=== PATIENT | female | born 1970 | race Caucasian/White ===

== ENCOUNTER 2020-11-08 09:06 | Outpatient (REF) | payer MEDICAID, SELFPAY ==
[2020-11-08 09:36] LABS: MANUAL DIFF FLAG NO
[2020-11-08 09:42] LABS: Basophils Percent Auto 0.5 % (0-2); Eosinophils Absolute Auto 0.4 X10*3/uL (0.0-0.4); Eosinophils Percent Auto 4.9 % (0-4); Hematocrit 40.3 % (37-47); Hemoglobin 12.7 g/dl (12.0-16.0); Imm Gran Abs Auto 0.03 X10*3/uL (0.00-0.03); Imm Gran Pct Auto 0.4 % (0.0-0.4); Lymphocytes Absolute Auto 2.7 X10*3/uL (1.2-4.9); Lymphocytes Percent Auto 35.6 % (20-40); Mean Corpuscular HGB Conc 31.5 g/dl (31.0-35.0); Mean Corpuscular Hemoglobin 28.3 pg (27.0-33.0); Mean Corpuscular Volume 89.8 fL (80-98); Mean Platelet Volume 10.1 fL (9.4-12.3); Monocytes Absolute Auto 0.5 X10*3/uL (0.1-1.2); Neutrophils Absolute Auto 3.9 X10*3/uL (2.0-8.3); Neutrophils Percent Auto 51.6 % (45-73); Platelet Count 319 X10*3/uL (160-400); Red Blood Count 4.49 X10*6/uL (4.20-5.50); Red Cell Distribution Width 13.7 % (11.0-16.0); White Blood Count 7.5 X10*3/uL (4.8-10.8)
[2020-11-08 10:05] LABS: Alanine Aminotransferase 23 U/L (0-31); Albumin Level 4.1 g/dL (3.5-5.0); Alkaline Phosphatase 106 U/L (39-117); Anion Gap 11 (12-20); Aspartate Amino Transferase 18 U/L (5-31); Bilirubin Total 0.6 mg/dL (0.0-1.0); Blood Urea Nitrogen 14 mg/dL (9-16); Calcium 9.1 mg/dL (8.4-10.2); Carbon Dioxide 29 mmol/L (22-29); Chloride 105 mmol/L (96-108); Cholesterol 173 mg/dL; Estimated Glomerular Filt Rate > 60; Glucose Fasting 90 mg/dL (60-99); HDL Cholesterol 43 mg/dL; LDL Cholesterol Calculated 113 mg/dl; Potassium 4.7 mmol/L (3.3-5.1); Sodium 140 mmol/L (135-145); Total Protein 7.6 g/dL (6.5-8.0); Triglycerides 86 mg/dL
[2020-11-08 10:21] LABS: HIV AB/AG Nonreactive (Nonreactive); HIV Num 1 0.07 S/CO (0.00-0.99)
[2020-11-08 10:26] LABS: Vitamin D 25-OH Total 45.9 ng/mL (>30)
== END 2020-11-08 09:07 | disposition home or self-care (01) ==
LOC: HO.LAB 09:06
PROVIDERS: PCP Nurse Practitioner Family; Visit Provider Nurse Practitioner Family
DX: E55.9 Vitamin D deficiency, unspecified (principal); G44.219 Episodic tension-type headache, not intractable; Z71.89 Other specified counseling
CPT/HCPCS: 36415; 80053; 80061; 82306; 85025; 87389

== ENCOUNTER 2020-11-29 12:21 | Outpatient (REF) | payer MEDICAID, SELFPAY ==
--- NOTE | ~2020-11-29 | MM_ITS ---
EXAMINATION: MM SCREENING DIGITAL BREAST TOMOSYNTHESIS, BILATERAL CLINICAL INFORMATION: Screening. Asymptomatic. The lifetime risk of breast cancer based on the Tyrer-Cuzick Model is 8%. COMPARISON: Mammography: 12/02/2018, 03/16/2017 TECHNIQUE: Digital breast tomosynthesis is performed in both the craniocaudal and mediolateral oblique views along with computer-aided detection (CAD). Synthesized 2D images are generated from the tomosynthesis. FINDINGS: There are scattered areas of fibroglandular density (ACR BI-RADS breast composition Category b). There are no significant masses, abnormal calcifications, or other abnormalities. Parenchymal pattern is similar to prior exams. The axilla and skin contours are unremarkable. MM/MM tomosynthesis screening BI IMPRESSION: No mammographic evidence of malignancy. ASSESSMENT: BI-RADS 1: Negative RECOMMENDATION: Routine annual mammography screening. This patient's information was entered into a reminder system with a target due date for their next mammogram.
== END 2020-11-29 12:22 | disposition home or self-care (01) ==
LOC: HO.MAMMO 12:21
PROVIDERS: PCP Nurse Practitioner Family; Visit Provider Nurse Practitioner Family
DX: Z12.31 Encounter for screening mammogram for malignant neoplasm of breast (principal)
CPT/HCPCS: 77063; 77067

== ENCOUNTER 2021-09-12 12:26 | Outpatient (REF) | payer MEDICAID, SELFPAY ==
--- NOTE | ~2021-09-12 | XR_ITS ---
EXAMINATION: XR CHEST CLINICAL INFORMATION: Cough COMPARISON: None TECHNIQUE: 2 views of the chest were obtained. FINDINGS: The lungs are well expanded. There is no focal consolidation, edema, or effusion. Mild bronchial wall thickening noted. No pneumothorax. The cardiomediastinal silhouette is within normal limits. No acute osseous abnormality. XR/XR chest 2V IMPRESSION: No dense consolidation. Bronchial wall thickening can be seen with a small airways process such as asthma or atypical/viral infection.
== END 2021-09-12 12:27 | disposition home or self-care (01) ==
LOC: HO.XRAY 12:26
PROVIDERS: PCP Nurse Practitioner Family; Visit Provider Nurse Practitioner Family
DX: R05.9 Cough, unspecified (principal)
CPT/HCPCS: 71046

== ENCOUNTER 2022-01-02 08:19 | Outpatient (REF) | payer MEDICAID, SELFPAY ==
--- NOTE | ~2022-01-02 | MM_ITS ---
EXAMINATION: MM SCREENING DIGITAL BREAST TOMOSYNTHESIS, BILATERAL CLINICAL INFORMATION: Screening. Asymptomatic. The lifetime risk of breast cancer based on the Tyrer-Cuzick Model is 8%. COMPARISON: Mammography: 11/29/2020, 12/02/2018, 03/16/2017 TECHNIQUE: Digital breast tomosynthesis is performed in both the craniocaudal and mediolateral oblique views along with computer-aided detection (CAD). Synthesized 2D images are generated from the tomosynthesis. FINDINGS: There are scattered areas of fibroglandular density (ACR BI-RADS breast composition Category b). There are no significant masses, abnormal calcifications, or other abnormalities. Parenchymal pattern is similar to prior studies. There is no developing density or architectural abnormality. The axilla and skin contours are unremarkable. No significant changes. MM/MM tomosynthesis screening BI IMPRESSION: No mammographic evidence of malignancy. ASSESSMENT: BI-RADS 1: Negative RECOMMENDATION: Routine annual mammography screening. This patient's information was entered into a reminder system with a target due date for their next mammogram.
== END 2022-01-02 08:20 | disposition home or self-care (01) ==
LOC: HO.MAMMO 08:19
PROVIDERS: PCP Nurse Practitioner Family; Visit Provider Nurse Practitioner Family
DX: Z12.31 Encounter for screening mammogram for malignant neoplasm of breast (principal)
CPT/HCPCS: 77063; 77067

== ENCOUNTER 2022-02-08 11:20 | Outpatient (REF) | payer MEDICAID, SELFPAY ==
--- NOTE | ~2022-02-08 | XR_ITS ---
EXAMINATION: XR HAND, LEFT CLINICAL INFORMATION: Pain COMPARISON: None TECHNIQUE: PA, lateral, and oblique views of the left hand. FINDINGS: No acute fracture or dislocation. Small marginal osteophytes of the first metacarpophalangeal joint, with tiny well-corticated ossific density along the ulnar aspect of the first proximal phalangeal base, likely chronic and degenerative in nature. No erosive changes. Soft tissues otherwise unremarkable. XR/XR hand LT min 3V IMPRESSION: No acute findings
== END 2022-02-08 11:21 | disposition home or self-care (01) ==
LOC: HO.HOSX 11:20
PROVIDERS: PCP Nurse Practitioner Family; Visit Provider Physician Assistant
DX: M79.642 Pain in left hand (principal); G56.02 Carpal tunnel syndrome, left upper limb; R20.0 Anesthesia of skin; R20.2 Paresthesia of skin
CPT/HCPCS: 73130; 99202

== ENCOUNTER 2022-03-03 12:00 | Outpatient (RCR) | payer MEDICAID, SELFPAY | END 2022-05-11 09:51 | disposition home or self-care (01) | LOC: HO.PT 12:00 | PROVIDERS: PCP Nurse Practitioner Family; Visit Provider Nurse Practitioner Family | DX: M25.572 Pain in left ankle and joints of left foot (principal) | CPT/HCPCS: 97110; 97161; 97530 ==

== ENCOUNTER 2022-07-27 | Outpatient (REF) | payer MEDICAID, SELFPAY ==
--- NOTE | 2022-07-27 10:00 | EMG_ITS ---
Bilateral median and ulnar motor and sensory studies were performed. Bilateral radial sensory studies were performed and paraspinal muscles were tested with a needle. IMPRESSION: Moderate to severe bilateral median neuropathy across carpal tunnel. MD JENNY Dumont/VAISHALI / [id number]
== END 2022-07-27 00:01 | disposition home or self-care (01) ==
LOC: HO.NEURO
PROVIDERS: Visit Provider Physician Assistant
DX: R20.0 Anesthesia of skin (principal); R20.2 Paresthesia of skin
CPT/HCPCS: 95886; 95911

== ENCOUNTER → 2022-09-12 12:34 | Outpatient (BNVA) | payer MEDICAID, SELFPAY | PROVIDERS: PCP Nurse Practitioner Family; Visit Provider Orthopaedic Surgery | DX: Z01.818 Encounter for other preprocedural examination (principal); G56.03 Carpal tunnel syndrome, bilateral upper limbs | CPT/HCPCS: 99212 ==

== ENCOUNTER 2022-09-21 09:41 | Day surgery (SDC) | payer MEDICAID, SELFPAY ==
[2022-09-21 09:55] VITALS: BMI 40.6
--- NOTE | 2022-09-21 09:58 | MHC.SHP ---
Pre-Procedural Eval Section A Date of Service: 09/21/22 The patient is an INPATIENT: No Changes since office visit: No Cold of Flu in the past 2 weeks, No New Medical Problems, No Changes in Medication and No Patient answered all questions The History & Physical has been completed within 30 days and I have reviewed it.: Yes Section B Chief Complaint: Carpal tunnel syndrome, left upper limb Allergies: Allergies Allergy/AdvReac Type Severity Reaction Status Date / Time No Known Allergies Allergy Verified 09/12/22 12:41 [No Known Allergies*] Plan I have reviewed the history and physical and performed a pertinent physical examination on my patient. No changes have occurred unless specified. Time Spent With Patient Time: Total time managing care of this patient today ____ minutes.
--- NOTE | 2022-09-21 09:58 | W.PM.OPN ---
Operative Note Operative Note Date of Service: 09/21/22 Narrative: Preop diagnosis: 1. left Carpal tunnel syndrome Postop diagnosis: same Procedure: 1. left Carpal tunnel release Surgeon: Penny Santana MD Anesthesia: local block using 1% lidocaine with epinephrine Findings: Thickened transverse carpal ligament. EBL: Less than 5 mL Specimens: None Complications: None Disposition: Brought to recovery room in stable condition Plan: Follow-up for 10-14 days for wound check and suture removal Indications: The patient is 52 years old, with left carpal tunnel syndrome that has been unresponsive to nonoperative management. The risks and benefits of operative treatment including but not limited to risk of damage to blood vessels, nerves, tendons, infection, persistent pain, persistent symptoms, or possible need for additional surgery were discussed with the patient and the patient wishes to proceed with surgery. Procedure: Once consent was obtained a local block was performed using a combination of 1% lidocaine with epinephrine. The patient was then brought back to the operating suite and placed on the operative table in supine position. A tourniquet was applied to the proximal aspect of the left upper extremity and the limb was prepped and draped in a standard surgical fashion. Once assured that we had a good block, a 2.0 cm longitudinal incision was made centered over the carpal tunnel. The incision was made through the skin to the subcutaneous tissues using a #15 blade. Dissection was made down to the level of the transverse carpal ligament with care being taken to protect the palmar cutaneous nerve. Once the transverse carpal ligament was clearly visualized, a longitudinal incision was made in the transverse carpal ligament 1st using a #15 blade, then using tenotomy scissors under direct visualization. Care was taken to look for and protect the motor branch of the median nerve when seen in this area. Once satisfied with our carpal tunnel release the wound was copiously irrigated with normal saline and hemostasis was obtained with a brief period of local pressure. The skin edges were reapproximated with some 5.0 nylon suture material and a sterile dressing was applied. The patient appears to have tolerated the procedure well and with no complications. All digits were well vascularized at the conclusion of the case.
[2022-09-21 11:33] VITALS: BP 130/70; PULSE 92; RESP 16; TEMP 37; O2SAT 96
== END 2022-09-21 11:53 | disposition home or self-care (01) ==
PROVIDERS: Visit Provider Orthopaedic Surgery
PROC: (CPT 64721; principal; 2022-09-21 12:10)
DX: G56.02 Carpal tunnel syndrome, left upper limb (principal); R20.0 Anesthesia of skin; R20.2 Paresthesia of skin
CPT/HCPCS: 64721; J0171

== ENCOUNTER → 2022-10-04 12:10 | Outpatient (BNVA) | payer MEDICAID, SELFPAY | PROVIDERS: Visit Provider Orthopaedic Surgery | DX: Z13.89 Encounter for screening for other disorder (principal) ==

== ENCOUNTER 2022-11-08 10:09 | Outpatient (REF) | payer MEDICAID, SELFPAY ==
--- NOTE | 2022-11-09 08:09 | MHC.AU.MED ---
Medical Clearance for Hearing Instrumentation Date: 11/09/22 Patient Name: Susannah Manuel Date of : 1970 Referring Provider: Cristina Rios NP We have seen your patient on 11/08/22 and have determined that they are a candidate for amplification (See accompanying report). Specifically, they would benefit from: Hearing aid use in both ears There is a statute that addresses Medical Evaluation Requirements prior to fitting a patient with a hearing aid. According to [place] statute [facility] CMR:6.03(1), (a) General. Except as provided in 265 CMR 6.03(1)(b), a supervisor wool shearing shall not sell a hearing aid unless the prospective user has presented to the supervisor wool shearing a written statement signed by a licensed physician that states that the patient's hearing loss has been medically evaluated and the patient may be considered a candidate for a hearing aid. The medical evaluation must have taken place within the preceding six months. Please note: Due to the [place] Statute referenced above, we cannot accept a signature other than that of a licensed physician. IMPLEMENTATION SPECIALIST PAYROLL and PA signatures cannot be accepted. I am in agreement with the above recommendation. There is no medical contraindication for hearing instrumentation. Physician Signature Date Physician Name (Printed)
--- NOTE | 2022-11-09 08:09 | MHC.AU.HA1 ---
Hearing Aid Evaluation Date of Visit: 11/08/22 Bank Representative Used: Armenian- By Phone Historical Information: Description of Hearing: Mild sloping to moderately-severe sensorineural hearing loss bilaterally Summary: Patient was seen for audiological evaluation (see separate report for details). She is interested in hearing aids. Discussed options and styles. She would like to try an ITC style, as she feels it would be more comfortable than having something behind her ear. Hearing Aid Prescription: Based on the individual?s shared listening needs, communication environments, dexterity, desire for connectivity, and personal preferences, the following prescription for amplification has been made: Right ear: Make, Model, Color: Phonak Virto P70-312 Battery Size: 312 Left ear: Make, Model, Color: Phonak Virto P70-312 Battery Size: 312 Action Taken/Action Needed: Earmold Impressions Taken Medical Clearance to be requested from PCP/ENT Hearing Instrument Fitting to be scheduled when materials arrive Primary Diagnosis: H90.3 Bilateral Sensorineural Hearing Loss Signature: Provider: Amauri Cristobal, MARIELLA-A
== END 2022-11-08 10:10 | disposition home or self-care (01) ==
LOC: HO.SH 10:09
PROVIDERS: Visit Provider Registered Nurse Community Health
DX: Z01.118 Encounter for examination of ears and hearing with other abnormal findings (principal); Z46.1 Encounter for fitting and adjustment of hearing aid; H90.3 Sensorineural hearing loss, bilateral
CPT/HCPCS: 92557; 92567; 92591; V5275

== ENCOUNTER 2022-12-14 13:39 | Outpatient (REF) | payer MEDICAID, SELFPAY | END 2022-12-14 13:40 | disposition home or self-care (01) | LOC: HO.HAP 13:39 | PROVIDERS: Visit Provider Registered Nurse Community Health | DX: Z46.1 Encounter for fitting and adjustment of hearing aid (principal); H90.3 Sensorineural hearing loss, bilateral | CPT/HCPCS: V5011; V5020; V5160; V5259; V5266 ==

== ENCOUNTER 2023-02-13 14:31 | Outpatient (REF) | payer MEDICAID, SELFPAY ==
--- NOTE | ~2023-02-13 | MM_ITS ---
EXAMINATION: MM SCREENING DIGITAL BREAST TOMOSYNTHESIS, BILATERAL CLINICAL INFORMATION: Screening. Asymptomatic. The lifetime risk of breast cancer based on the Tyrer-Cuzick Model is 8%. COMPARISON: Mammography: 01/02/2022, 11/29/2020, 12/02/2018 TECHNIQUE: Digital breast tomosynthesis is performed in both the craniocaudal and mediolateral oblique views along with computer-aided detection (CAD). Synthesized 2D images are generated from the tomosynthesis. Additional left MLO view is provided. FINDINGS: There are scattered areas of fibroglandular density (ACR BI-RADS breast composition Category b). There are no significant masses, abnormal calcifications, or other abnormalities. No architectural abnormality or developing density or significant change from prior studies. The axilla are unremarkable. Skin contours are smooth. MM/MM tomosynthesis screening BI IMPRESSION: No significant changes from prior exam. ASSESSMENT: BI-RADS 1: Negative RECOMMENDATION: Routine annual mammography screening. This patient's information was entered into a reminder system with a target due date for their next mammogram.
== END 2023-02-13 14:32 | disposition home or self-care (01) ==
LOC: HO.MAMMO 14:31
PROVIDERS: Visit Provider Nurse Practitioner Family
DX: Z12.31 Encounter for screening mammogram for malignant neoplasm of breast (principal)
CPT/HCPCS: 77063; 77067

== ENCOUNTER 2023-03-29 12:49 | Outpatient (REF) | payer MEDICAID, SELFPAY ==
--- NOTE | ~2023-03-29 | US_ITS ---
EXAMINATION: US PELVIS CLINICAL INFORMATION: Possible episode of postmenopausal bleeding. COMPARISON: None available. TECHNIQUE: Ultrasound of the pelvis is performed using both transabdominal and transvaginal transducers along with Doppler. Transvaginal imaging is performed due to inadequate visualization transabdominally. Imaging is limited by body habitus. FINDINGS: Uterus: The uterus is anteverted and measures 12.0 x 3.9 x 5.7 cm. The uterus is anteverted and retroflexed. Nabothian cysts are seen within the cervix. The double wall endometrial thickness is 0.6 mm. The uterus is smooth in contour and has normal myometrial echogenicity. No visible fibroid. Adnexa: Both ovaries are visualized. There is normal color flow to the adnexa. There is no ovarian torsion. There is no pelvic ascites or fluid collection. Right ovary measures 1.8 x 1.2 x 1.1 cm, volume 1.2 mL. Left ovary measures 3.1 x 1.7 x 2.1 cm, volume 6.0 mL. The left ovary contains a 2.2 x 1.4 x 1.7 cm dominant follicle. US/US pelvic and transvaginal IMPRESSION: 1. A 2.2 cm dominant left ovarian follicle is seen. 2. Nabothian cysts are seen within the cervix.
== END 2023-03-29 12:50 | disposition home or self-care (01) ==
LOC: HO.US 12:49
PROVIDERS: Visit Provider Registered Nurse
DX: N95.0 Postmenopausal bleeding (principal)
CPT/HCPCS: 76830; 76856

== ENCOUNTER 2023-06-07 13:49 | Outpatient (AMB) | payer MEDICAID, SELFPAY ==
--- NOTE | 2023-06-07 14:52 | A.OFFVIS_ITS ---
Intake Vital Signs 06/07/23 14:53 Height 5 ft Weight 215 lb BMI 42.0 BP 118/76 Intake Visit Reasons: PMB/PCP Referral Intake Note: The patient agreed to use of a front office medical assistant during this encounter. Scribed for SHIVA Crandall by Rhonda Khan front office medical assistant, on 06/07/2023 at 3:00 pm EST. Die Maker Apprentice Required: Yes Die Maker Apprentice Language: Elementary Assistant Teacher Name: Poly SALCIDO Information Interpreted: non-clinical & clinical Accompanied by: Self / Same As Patient Allergies No Known Allergies [No Known Allergies*] Allergy (Verified 06/07/23 14:53) Post menopausal: Yes HPI HPI Comments History of Present Illness Details She is here via PCP referral for: possible PMB. Reports regular menses lasting 5 days in the past last menses was in December and haven't had one since. Reported vaginal dryness with intimacy to PCP in the past and was prescribed Estrace a few years ago but does not use it. Denies hot flashes. [facility] Medical History (Updated 06/07/23 @ 15:20 by Rhonda Khan) Perimenopausal Social History (Reviewed 06/07/23 @ 14:54 by Poly Mckee [facility]) Patient Tobacco Use Status: Never used Tobacco Current occupational status: disabled Current occupation: rt hand Physical Exam Vital Signs: Last Vital Signs BP 118/76 06/07/23 14:53 BMI result Body Mass Index 42.0 Const General: cooperative, healthy appearing, comfortable, no acute distress, well developed, alert and awake Other: General: Yes bladder normal to palpation External Female Exam: normal external appearance and normal appearance of the urethra Speculum Exam - Vagina: normal appearance of the vagina, normal palpation and normal vaginal discharge Speculum Exam - Cervix: normal appearance of the cervix and normal palpation Bimanual exam- vagina & uterus: normal bimanual exam, normal palpation, bladder normal to palpation and normal palpation Bimanual Exam- Adnexa, other: normal adnexae and no masses Results Reviewed Results Reviewed: Ordering Physician: Betzy Barnes Date of Service: 03/29/23 Procedure(s): US pelvic and transvaginal Accession Number(s): [id number] cc: Betzy Barnes~ EXAMINATION:? US PELVIS CLINICAL INFORMATION:? Possible episode of postmenopausal bleeding. COMPARISON: None available. TECHNIQUE: Ultrasound of the pelvis is performed using both transabdominal and transvaginal transducers along with Doppler. Transvaginal imaging is performed due to inadequate visualization transabdominally. Imaging is limited by body habitus. FINDINGS: Uterus: The uterus is anteverted and measures 12.0 x 3.9 x 5.7 cm. The uterus is anteverted and retroflexed. Nabothian cysts are seen within the cervix. The double wall endometrial thickness is 0.6 mm.? The uterus is smooth in contour and has normal myometrial echogenicity. ? No visible fibroid. Adnexa: Both ovaries are visualized. There is normal color flow to the adnexa. There is no ovarian torsion.? There is no pelvic ascites or fluid collection. Right ovary measures 1.8 x 1.2 x 1.1 cm, volume 1.2 mL. Left ovary measures 3.1 x 1.7 x 2.1 cm, volume 6.0 mL. The left ovary contains a 2.2 x 1.4 x 1.7 cm dominant follicle. US/US pelvic and transvaginal IMPRESSION: ? 1. A 2.2 cm dominant left ovarian follicle is seen. ? 2. Nabothian cysts are seen within the cervix. Assessment & Plan Assessment & Plan (1) Perimenopausal: Code(s): N95.1 - Menopausal and female climacteric states Plan: Discussed: Reviewed US results via PCP. Counseled re: perimenopause vs menopause. Monitor periods, report any unscheduled bleeding, bleeding episodes less than 21 days apart or heavy prolonged menstrual bleeding. All of her questions and concerns were addressed to the best of my ability and shared decision making. She is agreeable to plan. (2) Vaginal dryness: Code(s): N89.8 - Other specified noninflammatory disorders of vagina Plan: Recommend Replens, [place] jelly, Astroglide or coconut oil for vaginal dryness. Orders: Orders Bacterial Vaginosis Panel Today N95.1 - Menopausal and female climacteric states CT NG by PCR Today N95.1 - Menopausal and female climacteric states Coding Level of Care Code New Pt Level 3 (36263) Diagnoses Perimenopausal N95.1 Vaginal dryness N89.8
[2023-06-07 14:53] VITALS: BP 118/76; BMI 42.0
== END 2023-06-07 15:25 | disposition home or self-care (01) ==
PROVIDERS: PCP Nurse Practitioner Family; Visit Provider Advanced Practice Midwife
DX: N95.1 Menopausal and female climacteric states (principal); N89.8 Other specified noninflammatory disorders of vagina
CPT/HCPCS: 99203

== ENCOUNTER 2023-06-07 13:49 | Outpatient (REF) | payer MEDICAID, SELFPAY ==
[2023-06-08 09:39] LABS: CT PCR NOT DETECTED (Not Detect.); NG PCR NOT DETECTED (Not Detect.)
[2023-06-08 12:08] LABS: BV Int Neg Control Negative (Negative)
[2023-06-08 12:09] LABS: BV Int Pos Control Positive (Positive)
== END 2023-06-07 13:50 | disposition home or self-care (01) ==
LOC: HO.LNP 13:49
PROVIDERS: PCP Nurse Practitioner Family; Visit Provider Advanced Practice Midwife
DX: N95.1 Menopausal and female climacteric states (principal); N89.8 Other specified noninflammatory disorders of vagina
CPT/HCPCS: 0353U; 87480; 87510; 87660; 99212

== ENCOUNTER → 2023-10-18 14:45 | Outpatient (REF) | payer MEDICAID, SELFPAY | LOC: HO.SL 14:45 | PROVIDERS: PCP Registered Nurse; Visit Provider Registered Nurse | DX: G47.33 Obstructive sleep apnea (adult) (pediatric) (principal); G47.19 Other hypersomnia; R06.83 Snoring | CPT/HCPCS: 95806 ==

== ENCOUNTER → 2023-10-18 19:00 | Outpatient (BNV) | payer MEDICAID, SELFPAY | PROVIDERS: PCP Registered Nurse; Visit Provider Internal Medicine | DX: G47.33 Obstructive sleep apnea (adult) (pediatric) (principal) | CPT/HCPCS: 95806 ==

== ENCOUNTER 2023-11-06 12:00 | Outpatient (REF) | payer MEDICAID, SELFPAY ==
[2023-11-06 13:51] LABS: Estimated Average Glucose 111 mg/dL; Hemoglobin A1c % 5.5 % (<6.0)
[2023-11-06 13:52] LABS: Alanine Aminotransferase 21 U/L (0-31); Albumin Level 4.1 g/dL (3.5-5.0); Alkaline Phosphatase 119 U/L (39-117); Anion Gap 12 (12-20); Aspartate Amino Transferase 20 U/L (5-31); Bilirubin Total 0.2 mg/dL (0.0-1.0); Blood Urea Nitrogen 12 mg/dL (9-16); Calcium 9.7 mg/dL (8.4-10.2); Carbon Dioxide 26 mmol/L (22-29); Chloride 105 mmol/L (96-108); Cholesterol 167 mg/dL (<200); Estimated Glomerular Filt Rate > 60; Glucose Random 89 mg/dL (60-115); HDL Cholesterol 44 mg/dL (>40); LDL Cholesterol Calculated 105 mg/dL (<100); Potassium 3.9 mmol/L (3.3-5.1); Sodium 139 mmol/L (135-145); Total Protein 8.5 g/dL (6.5-8.0); Triglycerides 94 mg/dL (<150)
[2023-11-06 14:29] LABS: Syphilis Screen Nonreactive (Nonreactive)
[2023-11-07 06:05] LABS: HBS Num1 0.33 mIU/mL (0-7.99); HBsAGNum1 0.35 S/CO (0.00-0.99); HIV AB/AG Nonreactive (Nonreactive); HIV Num 1 0.05 S/CO (0.00-0.99); Hepatitis A Antibody IgM 0.18 Index (0-0.79); Hepatitis B Core Antibody Nonreactive (Nonreactive); Hepatitis B Surface Antigen Negative (Negative); ~HepC Num1 0.17 S/CO (0.00-0.79); ~Hepatitis A Antibody IgM Nonreactive (Nonreactive); ~Hepatitis B Surface Antibody NONREACTIVE (Nonreactive); ~Hepatitis C Antibody Nonreactive (Nonreactive)
== END 2023-11-06 12:01 | disposition home or self-care (01) ==
LOC: HO.HHCL 12:00
PROVIDERS: Visit Provider Registered Nurse
DX: Z00.00 Encounter for general adult medical examination without abnormal findings (principal); E66.01 Morbid (severe) obesity due to excess calories; Z68.41 Body mass index [BMI] 40.0-44.9, adult
CPT/HCPCS: 36415; 80053; 80061; 83036; 86704; 86706; 86709; 86780; 86803; 87340; 87389

== ENCOUNTER 2024-02-06 11:02 | Outpatient (REF) | payer MEDICAID, SELFPAY ==
[2024-02-06 12:58] LABS: MANUAL DIFF FLAG NO
[2024-02-06 13:00] LABS: Basophils Absolute Auto 0.1 X10*3/uL (0.0-0.2); Basophils Percent Auto 0.6 % (0-2); Eosinophils Absolute Auto 0.4 X10*3/uL (0.0-0.4); Eosinophils Percent Auto 4.4 % (0-4); Hematocrit 40.3 % (37.0-47.0); Hemoglobin 12.7 g/dl (12.0-16.0); Imm Gran Abs Auto 0.03 X10*3/uL (0.00-0.03); Imm Gran Pct Auto 0.4 % (0.0-0.4); Immature Retic Fraction 11.4 % (3.0-15.9); Lymphocytes Absolute Auto 2.4 X10*3/uL (1.2-4.9); Lymphocytes Percent Auto 27.9 % (20-40); Mean Corpuscular HGB Conc 31.5 g/dl (31.0-35.0); Mean Corpuscular Hemoglobin 27.4 pg (27.0-33.0); Mean Corpuscular Volume 86.9 fL (80.0-98.0); Mean Platelet Volume 10.2 fL (9.4-12.3); Monocytes Absolute Auto 0.6 X10*3/uL (0.1-1.2); Monocytes Percent Auto 6.9 % (2-11); Neutrophils Percent Auto 59.8 % (45-73); Platelet Count 348 X10*3/uL (160-400); Red Blood Count 4.64 X10*6/uL (4.20-5.50); Retic HGB Equivalent 30.7 pg (30.0-35.0); Reticulocyte Percent 1.4 % (0.5-1.8); Reticulocytes Absolute 0.064 X10*6/uL (0.026-0.095); White Blood Count 8.4 X10*3/uL (4.8-10.8)
[2024-02-06 13:24] LABS: Alanine Aminotransferase 20 U/L (0-31); Alkaline Phosphatase 121 U/L (39-117); Anion Gap 13 (12-20); Aspartate Amino Transferase 17 U/L (5-31); Bilirubin Direct < 0.2 mg/dL (0.0-0.5); Bilirubin Total 0.2 mg/dL (0.0-1.0); Blood Urea Nitrogen 12 mg/dL (9-16); Calcium 9.5 mg/dL (8.4-10.2); Carbon Dioxide 26 mmol/L (22-29); Chloride 105 mmol/L (96-108); Estimated Glomerular Filt Rate > 60; Gamma Glutamyl Transpeptidase 34 U/L (7-33); Glucose Random 93 mg/dL (60-115); Potassium 4.2 mmol/L (3.3-5.1); Sodium 140 mmol/L (135-145); Total Protein 8.2 g/dL (6.5-8.0)
== END 2024-02-06 11:03 | disposition home or self-care (01) ==
LOC: HO.HHCL 11:02
PROVIDERS: Visit Provider Registered Nurse
DX: R74.8 Abnormal levels of other serum enzymes (principal); R77.9 Abnormality of plasma protein, unspecified
CPT/HCPCS: 36415; 80053; 82248; 82977; 85025; 85045

== ENCOUNTER 2024-02-21 16:12 | Outpatient (REF) | payer MEDICAID, SELFPAY | END 2024-02-21 16:13 | disposition home or self-care (01) | LOC: HO.MAMMO 16:12 | PROVIDERS: PCP Registered Nurse; Visit Provider Nurse Practitioner Family | DX: Z12.31 Encounter for screening mammogram for malignant neoplasm of breast (principal) | CPT/HCPCS: 77063; 77067 ==

== ENCOUNTER → 2024-02-21 16:30 | Outpatient (BNV) | payer MEDICAID, SELFPAY | PROVIDERS: PCP Registered Nurse; Visit Provider Radiology Diagnostic Radiology | DX: Z12.31 Encounter for screening mammogram for malignant neoplasm of breast (principal) | CPT/HCPCS: 77063; 77067 ==

== ENCOUNTER 2024-07-15 14:00 | Outpatient (RCR) | payer MEDICAID, SELFPAY ==
--- NOTE | 2024-06-18 14:09 | MHC.OT.EP ---
[address] [phone] Occupational Therapy Plan of Care Patient Name: Susannah Manuel Date of Evaluation: 06/18/24 Diagnosis: Chronic left elbow pain Pain Location: Left shoulder (acromion) and left medial elbow Low resting pain, increases w/ heavy work and more use Pain Score: 3 Pain Scale Used: Numeric (0 - 10) Aggravating Factors: Sleeping, heavy lifting Alleviating Factors: Tries to move arm throughout the day, Ibuprophen occasionally Assessment: 54 yo female presents with pain radiating from left shoulder to elbow, started a few months ago. She offers no specific cause of injury, but she sleeps on that side and believes that may have caused the problem originally. On assessment today, she has pain localized to left shoulder at acromion and tenderness and diffuse pain through left medial elbow. She has significant edema in left forearm compared to right w/ dense tissue palpable. She reports frequent activity in home w/ all home care for herself and three grown children and I believe this is a general overuse injury. She is receptive to education for activity modification and initiation of home exercise program to promote good circulation and movement of the upper body. I anticipate she will do well w/ course of OT. Frequency and Duration: The patient will be seen 2x/wk for 4 weeks Short Term Goals: Good follow through w/ joint protection and activity modification recommendations Ind w/ HEP Ind w/ nighttime sleep position recommendations Ind w/ heat modalities (heat pad, warm water, etc) Pt to incorporate daily walks for circulation Nursing Home Goals: Pt to report ease w/ moderate lifting/forceful tasks at home (laundry, mopping) Pt to report sleeping through night without waking w/ LUE pain Ind w/ progression of strengthening program w/ therabands Treatment Plan: Therapeutic Exercise Therapeutic Activity Home Exercise Program Patient Education Edema Control ADL Training Fluidotherapy MHP Soft Tissue Mobilization Kinesiotaping Electronically Signed By: MARGY Ward/Daphne CHT Please Sign and return to therapist. Thank you once again for your referral.
--- NOTE | 2024-07-30 11:40 | MHC.OT.DC ---
[address] [phone] F: [phone] Occupational Therapy Discharge Note Patient Name: Susannah Manuel Provider: Betzy Barnes NP Diagnosis: Chronic left elbow pain Date of Surgery: Date of Evaluation: 06/18/24 Date of Discharge: 07/30/24 Treatments to Date: 3 Cancellations to Date: 6 No Shows to Date: 2 Discharge Status: Discharge Summary: Susannah was seen initially for chronic left elbow pain. She was given HEP and missed several appointments due to Covid, but on return had reported good improvements in pain and movement. She was seen for a total of three OT session including initial eval, but has missed 8 appointments (inclduing 2 no shows) and we will be discharging therapy services at this time due to non-compliance policy. I anticipate she will continue to do well w/ home program. Electronically Signed By: Chichi Woodruff OTR/L Reviewed/agree with student documentation: Therapist: Please Sign and return to therapist, thank you for your referral.
== END 2024-07-30 11:41 | disposition home or self-care (01) ==
LOC: HO.OT 14:00
PROVIDERS: PCP Registered Nurse; Visit Provider Registered Nurse
DX: M25.522 Pain in left elbow (principal)
CPT/HCPCS: 97110; 97140; 97165

== ENCOUNTER 2024-10-30 09:59 | Outpatient (REF) | payer MEDICAID, SELFPAY ==
--- NOTE | ~2024-10-30 | US_ITS ---
EXAMINATION: US LOWER EXTREMITY VENOUS (REFLUX EXAM), BILATERAL CLINICAL INFORMATION: Venous insufficiency. COMPARISON: None. TECHNIQUE: Color flow triplex imaging and compression Doppler was performed to evaluate both the deep and the superficial systems bilaterally. To evaluate the superficial system, the examination was performed in the upright position. Color-flow Doppler ultrasound and compression ultrasound were utilized. In addition, maneuvers were utilized to demonstrate reflux. FINDINGS: 1. DEEP VENOUS ULTRASOUND OF THE RIGHT LOWER EXTREMITY: Common Femoral Vein: Compressible, normal respiratory variation and augmented flow. Femoral Vein: Compressible, normal color flow and augmentation. Popliteal Vein: Compressible, normal augmentation. Deep Reflux: There is no evidence of reflux in the deep system in either the common femoral vein, superficial femoral or the popliteal vein. There is no evidence of a Joshua's cyst. 2. SUPERFICIAL ULTRASOUND WITH DOPPLER OF RIGHT LOWER EXTREMITY: GREAT SAPHENOUS VEIN: Saphenofemoral Junction: 0.5 cm; Reflux: 0 ms Proximal Thigh: 0.6 cm; Reflux: 0 ms Mid Thigh: 0.5 cm; Reflux: 0 ms Distal Thigh: 0.5 cm; Reflux: 0 ms At Knee: 0.5 cm; Reflux: 0 ms Proximal Calf: 0.4 cm; Reflux: 0 ms Mid Calf: 0.2 cm; Reflux: 0 ms Distal Calf: 0.3 cm; Reflux: 0 ms DUPLICATED MEDIAL GREAT SAPHENOUS VEIN: Diameter: None imaged Reflux: NA DUPLICATED LATERAL GREAT SAPHENOUS VEIN: Diameter: 0.5 Reflux: NA SMALL SAPHENOUS VEIN: Saphenopopliteal Junction: 0.2 cm; Reflux: 0 ms Proximal: 0.2 cm; Reflux: 0 ms Distal: 0.1 cm; Reflux: 0 ms VEIN OF GIACOMINI: Size: NA Reflux: NA PERFORATORS: Location: None imaged Size: NA Reflux: NA VARICOSITIES: Location: None imaged. Size: NA Reflux: NA 3. DEEP VENOUS ULTRASOUND OF THE LEFT LOWER EXTREMITY: Common Femoral Vein: Compressible, normal respiratory variation and augmented flow. Femoral Vein: Compressible, normal color flow and augmentation. Popliteal Vein: Compressible, normal augmentation. Deep Reflux: There is no evidence of reflux in the deep system in either the common femoral vein, superficial femoral or the popliteal vein. There is no evidence of a Joshua's cyst. 4. SUPERFICIAL ULTRASOUND WITH DOPPLER OF LEFT LOWER EXTREMITY: GREAT SAPHENOUS VEIN: Saphenofemoral Junction: 0.4 cm; Reflux: 0 ms Proximal Thigh: 0.6 cm; Reflux: 0 ms Mid Thigh: 0.3 cm; Reflux: 0 ms Distal Thigh: Not seen. At Knee: Not seen. Proximal Calf: 0.3 cm; Reflux: More than 2936 ms Mid Calf: 0.2 cm; Reflux: 1976 ms Distal Calf: 0.2 cm; Reflux: 1336 ms DUPLICATED MEDIAL GREAT SAPHENOUS VEIN: Diameter: 0.5 Reflux: NA DUPLICATED LATERAL GREAT SAPHENOUS VEIN: Diameter: None imaged. Reflux: NA SMALL SAPHENOUS VEIN: Saphenopopliteal Junction: 0.2 cm; Reflux: 0 ms Proximal: 0.2 cm; Reflux: 0 ms Distal: 0.2 cm; Reflux: More than 2488 ms VEIN OF GIACOMINI: Size: NA Reflux: NA PERFORATORS: Location: None imaged Size: NA Reflux: NA VARICOSITIES: Location: None Imaged Size: NA Reflux: NA US/US venous insuf bilat IMPRESSION: Right: No venous insufficiency. Left: Venous insufficiency, left great saphenous vein below the knee and left small saphenous vein distal calf. Electronically signed by: Austin Lugo MD 11/03/2024 08:25 AM EST
== END 2024-10-30 10:00 | disposition home or self-care (01) ==
LOC: HO.US 09:59
PROVIDERS: PCP Registered Nurse; Visit Provider Registered Nurse
DX: I87.2 Venous insufficiency (chronic) (peripheral) (principal)
CPT/HCPCS: 93970

== ENCOUNTER → 2024-10-30 10:01 | Outpatient (BNV) | payer MEDICAID, SELFPAY | PROVIDERS: PCP Registered Nurse; Visit Provider Radiology Diagnostic Radiology | DX: I87.2 Venous insufficiency (chronic) (peripheral) (principal) | CPT/HCPCS: 93970 ==

== ENCOUNTER 2025-01-08 15:54 | Outpatient (REF) | payer MEDICAID, SELFPAY ==
[2025-01-08 18:05] LABS: Alanine Aminotransferase 19 U/L (0-31); Albumin Level 3.9 g/dL (3.5-5.0); Alkaline Phosphatase 111 U/L (39-117); Anion Gap 11 (12-20); Aspartate Amino Transferase 25 U/L (5-31); Bilirubin Total 0.2 mg/dL (0.0-1.0); Blood Urea Nitrogen 13 mg/dL (9-16); Calcium 9.5 mg/dL (8.4-10.2); Carbon Dioxide 27 mmol/L (22-29); Chloride 106 mmol/L (96-108); Estimated Glomerular Filt Rate > 60; Glucose Random 99 mg/dL (60-115); Sodium 140 mmol/L (135-145); Total Protein 7.6 g/dL (6.5-8.0)
== END 2025-01-08 15:55 | disposition home or self-care (01) ==
LOC: HO.HHCL 15:54
PROVIDERS: Visit Provider Registered Nurse
DX: R74.8 Abnormal levels of other serum enzymes (principal)
CPT/HCPCS: 36415; 80053